=== PATIENT | female | born 1925 | race Caucasian/White ===

== ENCOUNTER 2016-07-24 17:42 | Emergency (ER) | payer OTHER ==
[~2016-07-24] VITALS: Ht 160 cm; Wt 63.5 kg
[~2016-07-24 17:42] MED LIST: METOPROLOL SUCC25 M1 PO; PLAVIX75 MG PO; PROTONIX20 MG PO; ZOCOR40 MG PO
--- NOTE | 2016-07-24 17:42 | NUR ---
Patient was BIBA at this time.
[2016-07-24 17:44] VITALS: BP 176/86
[2016-07-24] MEDS ORDERED: METFORMIN500 MG PO (17:55)
[2016-07-24] MEDS ORDERED: REGLAN5 MG PO (17:55)
[2016-07-24] MEDS ORDERED: MULTI-VITAMIN1 EACH PO (17:55)
[2016-07-24] MEDS ORDERED: ISOSORBIDE1 POW (17:55)
[2016-07-24] MEDS ORDERED: PAROXETINE10 MG PO (17:55)
[2016-07-24] MEDS ORDERED: METOPROLOL50 M1 PO (17:55)
[2016-07-24] MEDS ORDERED: MIRTAZAPINE15 M1 PO (17:55)
[2016-07-24] MEDS ORDERED: ATORVASTATIN CA40 MG PO (17:55)
[2016-07-24] MEDS ORDERED: ELIQUIS5 MG PO (17:55)
[2016-07-24] MEDS ORDERED: CIPRO250 MG PO (17:55)
[2016-07-24] MEDS ORDERED: LORAZEPAM0.5 MG PO (17:55)
[2016-07-24] MEDS ORDERED: LISINOPRIL10 M1 PO (17:55)
[2016-07-24] MEDS ORDERED: MAPAP325 MG PO (17:55)
--- NOTE | 2016-07-24 17:55 | NUR ---
PT BIB EMS FROM [facility] S/P [place], PT. HAS HEMATOMA TO LEFT FOREHEAD.PT STATES SHE WAS WALKING TO THE RESTROOM WHEN SHE SLIPS AND HIT VHER HEAD.DENIES DIZZINESS/CP/SOB/COUGH/N/V AT THIS TIME.DENIES ANY MEDICAL HX.PT STATES SHE HAS A HEADACHE.NO ACUTE DISTRESS NOTED AT THIS TIME;HOB ELEVATED;SAFETY PRECAUTION INSTITUTED;NEEDS ATTENDED;MD MADE AWARE OF PT'S CONDITION.
--- NOTE | 2016-07-24 17:58 | NUR ---
Dr. Villalta evaluating patient.
--- NOTE | 2016-07-24 17:58 | NUR ---
Patient going to bed 03 via gurney per EMS.
--- NOTE | 2016-07-24 18:18 | NUR ---
PT WENT TO CT SCAN ACCOMPANIED BY MOSHGIACH;NO ACUTE DISTRESS NOTED AT THIS TIME
--- NOTE | 2016-07-24 18:42 | NUR ---
LAB at bedside.
--- NOTE | 2016-07-24 19:14 | NUR ---
REPORT RECEIVED BY [facility] RN
[2016-07-24] MEDS ORDERED: traMADol 50 MG TAB PO ONE (19:40)
--- NOTE | 2016-07-24 21:44 | NUR ---
ICEPACK GIVEN TO PT FOR BUMP ON HEAD.
--- NOTE | 2016-07-24 22:29 | NUR ---
Patient discharged with v/s stable. Written and verbal after care instructions given and explained. DISCHARGED WITH SON Patient alert, oriented and verbalized understanding of instructions. Ambulatory with to [facility]. All questions addressed prior to discharge. ID band removed. Patient advised to follow up with PMD. Rx of TRAMADOL given. Patient educated on indication of medication including possible reaction and side effects. Opportunity to ask questions provided and answered.
[2016-07-24 22:30] VITALS: BP 139/65
== END 2016-07-24 22:30 | disposition home or self-care (01) ==
LOC: MED 17:42
DX: S00.93XA Contusion of unspecified part of head, initial encounter (principal); I25.2 Old myocardial infarction; Z88.5 Allergy status to narcotic agent; Z88.0 Allergy status to penicillin; Z88.2 Allergy status to sulfonamides; X58.XXXA Exposure to other specified factors, initial encounter; Y93.89 Activity, other specified; Y92.89 Other specified places as the place of occurrence of the external cause; Y99.8 Other external cause status